=== PATIENT | female | born 1955 | race Two or more races ===

== ENCOUNTER 2022-08-25 10:30 | Emergency (ER) | payer OTHER ==
[~2022-08-25] VITALS: Ht 167.6 cm; Wt 83.9 kg
[~2022-08-25 10:30] MED LIST: ATORVASTATIN CA40 MG; CIPRO500 MG PO; ENALAPRIL MALEA10 MG; INTESTINEX680 M2 PO; METRONIDAZOLE500 MG PO; PEPCID AC20 MG PO
[2022-08-25] MEDS ORDERED: OSEL75CA PO (13:23)
== END 2022-08-25 14:36 | disposition home or self-care (01) ==
LOC: ER 10:30
DX: J11.1 Influenza due to unidentified influenza virus with other respiratory manifestations (principal); E78.00 Pure hypercholesterolemia, unspecified; K57.32 Diverticulitis of large intestine without perforation or abscess without bleeding; Z20.822 Contact with and (suspected) exposure to COVID-19

== ENCOUNTER 2025-01-19 22:41 | Emergency (ER) | payer OTHER ==
[~2025-01-19] VITALS: Ht 167.6 cm; Wt 90.7 kg
[~2025-01-19 22:41] MED LIST changes: +OSEL75CA PO
[2025-01-19] MEDS ORDERED: ATORVASTATIN CA20 MG PO (22:44)
[2025-01-19] MEDS ORDERED: VITAMIN D3125 MCG PO (22:45)
[2025-01-19] MEDS ORDERED: 0.9 % SODIUM CHLORIDE 500 ML IV ONE (23:45)
[2025-01-19] MEDS ORDERED: ONDANSETRON HCL 2 MG/ML VIAL IV STA (23:51)
[2025-01-19] MEDS ORDERED: KETOROLAC TROMETHAMINE 30 MG VIAL IV STA (23:51)
[2025-01-20] MEDS ORDERED: KETOROLAC TROMETHAMINE 30 MG VIAL ONE ×2 (00:06→07:44)
[2025-01-20] MEDS ORDERED: ONDANSETRON HCL 2 MG/ML VIAL ONE (00:06)
[2025-01-20 00:42] LABS: BASO % 0.4 % (0.1-1.2); EOS # 0.06 (0.04-0.54); EOS % 0.8 % (0.7-7.0); LYMPH # 1.56 (1.18-3.74); LYMPH % 20.7 % (19.3-53.1); MEAN PLATELET VOLUME 9.70 fl (9.4-12.4); MONO # 0.72 (0.24-0.82); MONO % 9.5 % (4.7-12.5); NEUT # 5.16 (1.56-6.13); NEUT % 68.3 % (34.0-71.1); RED CELL DISTRIBUTION WIDTH 14.5 % (11.6-14.4)
[2025-01-20 01:10] LABS: ALT/SGPT 18.0 U/L (12-78); AST/SGOT 17.0 U/L (15-37); BILIRUBIN TOTAL 0.85 mg/dL (0.3-1.2); BUN CREA RATIO 14.0 (7.0-25.0); CREATININE SERUM 0.8 mg/dL (0.55-1.02); GFR 71.33; GLOBULINA 3.5 G/DL (2.4-3.5); GLUCOSE FASTING 125.0 mg/dL (65-100); OSMOLALITY SERUM 286.0 MOSM/KG (275-295)
[2025-01-20 01:15] LABS: URINE APPEARANCE Clear; URINE BILIRRUBIN Negative (NEGATIVE); URINE BLOOD Negative; URINE COLOR Yellow; URINE GLUCOSE Negative (NEGATIVE); URINE KETONE Trace (NEGATIVE); URINE LEUKOCYTE Negative; URINE NITRATE Negative; URINE PROTEIN Negative (NEGATIVE); URINE UROBILINOGEN 0.2 E.U./dl
[2025-01-20 01:16] LABS: URINE BACTERIA 260.3 uL (0.0-1933); URINE EPITHELIAL CELLS 10.7 uL (0.0-38.8); URINE RBC 3.9 uL (0.0-20.8); URINE WBC 4.1 uL (0.0-23.2)
[2025-01-20 01:43] LABS: URINE CAST 0.29 uL (0.0-1.40)
[2025-01-20] MEDS ORDERED: METRONIDAZOLE/SODIUM CHLORIDE 500 MG/100 ML PIGGYBACK IV STA (03:14)
[2025-01-20] MEDS ORDERED: CIPROFLOXACIN IN 5 % DEXTROSE 400 MG/200 ML PIGGYBAG IV STA (03:14)
[2025-01-20] MEDS ORDERED: METRONIDAZOLE/SODIUM CHLORIDE 500 MG/100 ML PIGGYBACK IV ONE (03:22)
[2025-01-20] MEDS ORDERED: BARIUM SULFATE 450 ML ORAL.SUSP PO ONE (03:22)
[2025-01-20] MEDS ORDERED: CIPROFLOXACIN IN 5 % DEXTROSE 400 MG/200 ML PIGGYBAG IV ONE (03:22)
[2025-01-20] MEDS ORDERED: ONDANSETRON HCL 2 MG/ML VIAL IV STA (03:43)
[2025-01-20] MEDS ORDERED: KETOROLAC TROMETHAMINE 30 MG VIAL IV STA (07:27)
[2025-01-20] MEDS ORDERED: METRONIDAZOLE500 MG PO ×2 (07:37→07:40)
[2025-01-20] MEDS ORDERED: LEVSIN/SL0.125 MG SL (07:39)
[2025-01-20] MEDS ORDERED: CIPRO500 MG PO (07:40)
[2025-01-20] MEDS ORDERED: DOLOGESIC-DF 51 EACH PO ×2 (07:40)
== END 2025-01-20 08:22 ==
LOC: ER 22:41
PROVIDERS: General Practice
DX: K57.92 Diverticulitis of intestine, part unspecified, without perforation or abscess without bleeding (principal); R10.9 Unspecified abdominal pain
CPT/HCPCS: 36415; 74022; 74177; 96365; 96366; 99284; J0744; J1885 ×2; J2405 ×2; J3490; J7042; Q9965